=== PATIENT | female | born 1975 | race Caucasian/White ===

== ENCOUNTER → 2019-11-04 | Outpatient (CLI) | payer OTHER ==
[~2019-11-04] MED LIST: HYDR-2765 PO; LEVO25TA4 PO; LISI1TAB19 PO; NAPR500T8 PO
[2019-11-04 15:19] VITALS: BP 114/64
== END ==
LOC: SURG 14:00
PROVIDERS: ATTEND Anesthesiology Pain Medicine
DX: M25.551 Pain in right hip (principal); M54.5 Low back pain; M54.16 Radiculopathy, lumbar region; Z88.5 Allergy status to narcotic agent; Z88.8 Allergy status to other drugs, medicaments and biological substances
CPT/HCPCS: 99204

== ENCOUNTER 2019-12-14 18:40 | Emergency (ER) | payer OTHER ==
[~2019-12-14] VITALS: Ht 175.3 cm; Wt 64.5 kg
[2019-12-14 18:50] VITALS: BP 104/63
--- NOTE | 2019-12-14 18:56 | PHYS DOC ---
Past History Past Medical History: IBS, Kidney Stones, UTI Adult General Chief Complaint Chief Complaint: FLANK PAIN... " Claudia been having severe fllank pain on Lt.. it radiates down to my pelvis.. I went to [facility] on Friday... they took a urine and look up my vaginal area.. but said everything was all right... I have a follow up at [facility] this next week.. but I can'tt stand the pain.. HPI HPI Patient is a 44 year old female who presents with above hx and complaints generalized abdomen pain with some localization and left flank that radiates to her groin. She states at times it feels like she's having bladder spasms. Patient has history of 2 previous kidney stones. Patient states this is not a kidney stone like pain. Patient has had 4 sisters who have history kidney sto luca. Patient denies any travel or specific ill contacts. No history of trauma. Has a history of colitis and IBS. Patient denies any intake of bad food. No recent travel. No specific ill contacts. Pt. follows with Dr. Tlyer at [facility]. Patient poorly has been treated for UTI. Has been on Pyridium. Note patient's workup for abdomen pain was started before lab draws and x-rays the patient decided to leave. Patient states she only came here to get pain meds. Review of Systems Review of Systems Constitutional: Denies fever or chills [] Eyes: Denies change in visual acuity, redness, or eye pain [] HENT: Denies nasal congestion or sore throat [] Respiratory: Denies cough or shortness of breath [] Cardiovascular: No additional information not addressed in HPI [] GI: Complaints of generalized abdominal pain, nausea. Some left flank tenderness. Denies, vomiting, bloody stools or diarrhea [] : Denies dysuria or hematuria [] Musculoskeletal: Denies back pain or joint pain [] Integument: Denies rash or skin lesions [] Neurologic: Denies headache, focal weakness or sensory changes [] Endocrine: Denies polyuria or polydipsia [] All other systems were reviewed and found to be within normal limits, except as documented in this note. Family History Family History Renal stones with 2 sisters Current Medications Current Medications He nursing for home meds Allergies Allergies Allergies Coded Allergies Type Severity Reaction Last Updated Verified morphine Allergy Unknown 11/04/19 Yes Physical Exam Physical Exam Constitutional: Moderate acute distress, non-toxic appearance. [] HENT: Normocephalic, atraumatic, bilateral external ears normal, oropharynx moist, no oral exudates, nose normal. [] Eyes: PERRLA, EOMI, conjunctiva normal, no discharge. [] Neck: Normal range of motion, no tenderness, supple, no stridor. [] Cardiovascular:Heart rate regular rhythm, no murmur [] Lungs & Thorax: Bilateral breath sounds clear to auscultation [] Abdomen: Bowel sounds normal, soft, generalized tenderness, no masses, no pulsatile masses. Some rebound to the left upper and mid abdomen. Skin: Warm, dry, no erythema, no rash. [] Back: No tenderness, very mild left CVA tenderness. [] Extremities: No tenderness, no cyanosis, no clubbing, ROM intact, no edema. [] Neurologic: Alert and oriented X 3, normal motor function, normal sensory function, no focal deficits noted. [] Psychologic: Affect anxious ,judgement normal, mood normal. [] EKG EKG [] Radiology/Procedures Radiology/Procedures Left before completing x-rays[] Course & Med Decision Making Course & Med Decision Making Pertinent Labs and Imaging studies reviewed. (See chart for details) Patient left before completing x-rays labs for further evaluation. Patient encourage return anytime if she elected to complete her workup. Patient declined dose of Flomax for bladder spasms. Patient declined any antibiotics. Advised She would follow at [facility]. Encouraged patient stay on clear fluids if having abdomen pain. Push fluids. Return if any time. Impression- 1.. Abdomen pain 2. Suspect renal colic vs bladder spasms [] Dragon Disclaimer Dragon Disclaimer This electronic medical record was generated, in whole or in part, using a voice recognition dictation system. Departure Departure: Disposition: 01 HOME/RESIDENCE PRIOR TO ADM Condition: STABLE Referrals: SUKHJINDER TYLER DO (PCP) Bindu Disclaimer This chart was dictated in whole or in part using Voice Recognition software in a busy, high-work load, and often noisy Emergency Department environment. It m ay contain unintended and wholly unrecognized errors or omissions. Dragon Disclaimer This chart was dictated in whole or in part using Voice Recognition software in a busy, high-work load, and often noisy Emergency Department environment. It may contain unintended and wholly unrecognized errors or omissions. DAISHA HOUSE MD Dec 14, 2019 18:56
[2019-12-14 19:52] LABS: BARBITURATES NEG (NEG); BENZODIAZEPINES NEG (NEG); CANNABINOIDS NEG (NEG); COCAINE NEG (NEG); METHADONE NEG (NEG); OPIATES POS (NEG); PHENCYCLIDINE NEG (NEG)
[2019-12-14 19:53] LABS: AMPHETAMINE/METHAMPHETAMINE NEG (NEG)
[2019-12-14] MEDS ORDERED: IV RINGERS SOLUTION,LACTATED 1,000 ML IV SCH (20:05)
[2019-12-14] MEDS ORDERED: TAMSULOSIN 0.4 MG CAP.ER.24H. PO ONE (20:15)
[2019-12-14] MEDS ORDERED: KETOROLAC 30 MG/ML VIAL. IVP ONE (20:15)
[2019-12-14] MEDS ORDERED: FAMOTIDINE 20 MG/2 ML VIAL IVP ONE (20:15)
[2019-12-14] MEDS ORDERED: ONDANSETRON PF 4 MG/2 ML VIAL. IVP ONE (20:15)
[2019-12-14 20:21] LABS: BACTERIA,URINE FEW /HPF (0-FEW); BILIRUBIN,URINE NEG (NEG); CLARITY,URINE CLEAR; COLOR,URINE AMBER; GLUCOSE,URINE NEG (NEG); NITRITE,URINE POS (NEG); RBC,URINE OCC /HPF (0-2); SQUAMOUS EPITHELIAL CELL,UR FEW /LPF; UROBILINOGEN,URINE 0.2 mg/dL (0.2 mg/dL); WBC,URINE OCC /HPF (0-4)
== END 2019-12-14 20:27 | disposition home or self-care (01) ==
LOC: ER 18:40
DX: R10.84 Generalized abdominal pain (principal); Z88.5 Allergy status to narcotic agent
CPT/HCPCS: 36415; 80307; 81001; 87086; 99283

== ENCOUNTER → 2019-12-15 | Outpatient (CLI) | payer OTHER ==
[2019-12-14 18:50] VITALS: BP 104/63
--- NOTE | 2019-12-15 13:38 | RAD ---
EXAM: CT Abdomen and Pelvis without IV contrast CLINICAL HISTORY: Left flank pain. COMPARISON: none TECHNIQUE: Helical CT of the abdomen and pelvis was performed without the administration of IV contrast. Axial, coronal and sagittal reformatted images were generated. ---PQRS compliance statement - One or more of the following individualized dose reduction techniques were utilized for this study: 1. Automated exposure control 2. Adjustment of the mA and/or kV according to patient size 3. Use of iterative reconstruction technique--- FINDINGS: Lack of intravenous contrast limits evaluation of solid organs, vasculature, and lymph nodes. Lower chest: Dependent opacities in the lingula likely scarring/atelectasis. Abdomen and pelvis: Liver and biliary system: Liver is borderline enlarged measuring 18 cm in length. No focal liver lesion is seen. Mild high density material dependently within the gallbladder likely sludge. No biliary ductal dilatation. Spleen: Unremarkable Pancreas: Pancreas is unremarkable. Adrenal glands: Unremarkable Kidneys: Punctate nonobstructing right upper pole renal calculus. No hydronephrosis or hydroureter. A 3 mm calculus is seen within the distal right ureter with associated infiltration, this is approximately 8 mm from the right ureterovesicular junction. Lymph nodes/retroperitoneum: No abdominal or pelvic lymphadenopathy. Vessels: Aortic calcifications are noted. Bowel/Peritoneal cavity: Moderate colonic stool content is seen. No small or large bowel dilatation. No evidence for bowel obstruction. No abdominal or pelvic ascites. Uterus and adnexa are unremarkable. Abdominal wall: Small fat-containing periumbilical hernia is seen. Small fat-containing periumbilical hernia is seen. Bladder: Bladder is decompressed. Bones: Degenerative changes of the spine are seen. No aggressive osseous lesion. IMPRESSION: 1. 3 mm calculus within the distal right ureter approximately 8 mm from the right ureterovesicular junction is seen. No significant associated right hydronephrosis or hydroureter. 2. Punctate nonobstructing right upper pole renal calculus. No additional left or right renal calculi are seen. 3. Liver is borderline enlarged measuring 18 cm in length. 4. Gallbladder sludge. Electronically signed by: Pratik Kang MD (12/15/2019 1:36 PM) [facility]
== END | disposition home or self-care (01) ==
LOC: CT 13:03
PROVIDERS: ATTEND Family Medicine
DX: K42.9 Umbilical hernia without obstruction or gangrene (principal); J98.4 Other disorders of lung; R16.0 Hepatomegaly, not elsewhere classified; N20.0 Calculus of kidney; I70.0 Atherosclerosis of aorta; M47.814 Spondylosis without myelopathy or radiculopathy, thoracic region; N20.1 Calculus of ureter
CPT/HCPCS: 74176

== ENCOUNTER 2021-02-24 03:13 | Emergency (ER) | payer OTHER ==
[~2021-02-24] VITALS: Ht 160 cm; Wt 65.7 kg
[~2021-02-24 03:13] MED LIST changes: -LISI1TAB19 PO; +LISI1TAB37 PO
--- NOTE | 2021-02-24 03:22 | PHYS DOC ---
Past History Past Medical History: UTI Past Surgical History: No Surgical History Alcohol Use: None Adult General HPI HPI Patient is a 45-year-old female who presents with bilateral lower back pain that wraps around to her supra pubic region bilaterally. She reports the pain got really bad about 5 days ago. She does have a history of chronic back pain and has had multiple lower back ablations in the past. She reports she normally takes Vicodin 7.5 mg over 325 mg and Flexeril to manage her pain. When her symp toms began she thought this was a muscular back pain therefore she took her pain medications and her muscle relaxer however did not find relief. She reports it feels like dagger/sharp sensation that wraps around from her mid lumbar region to her suprapubic region. She does state that she has not had any changes in urination, any blood in her urine, any changes in her bowel habitus, bloody bowel movements, nausea, or vomiting. Reports no sick contacts or fevers at home. Review of Systems Review of Systems Fourteen body systems of review of systems have been reviewed. See HPI for pertinent positives and negative responses, other stiles all other systems are negative, non-pertinent or non-contributory Allergies Allergies Allergies Coded Allergies Type Severity Reaction Last Updated Verified morphine Allergy Unknown 11/04/19 Yes Physical Exam Physical Exam Constitutional: Well developed, well nourished, no acute distress, non-toxic appearance. HENT: Normocephalic, atraumatic, bilateral external ears normal, oropharynx moist, no oral exudates, nose normal. Eyes: PERRLA, EOMI, conjunctiva normal, no discharge. Neck: Normal range of motion, no tenderness, supple, no stridor. Cardiovascular: Heart rate regular, sinus rhythm, no murmurs rubs or gallops Lungs & Thorax: Bilateral breath sounds clear to auscultation Abdomen: Bowel sounds normal, soft, no masses, no pulsatile masses. Nonsurgical abdomen, no peritoneal signs. Tenderness to palpation in the lower right and lower left quadrants. Negative Lawton's negative Rovsing's negative CVA tenderness bilaterally negative McBurney's point tenderness negative periumbilical tenderness negative obturator sign bilaterally, negative heel strike bilaterally Skin: Warm, dry, no erythema, no rash. Back: No tenderness, no CVA tenderness. Negative straight leg test bilaterally Extremities: No tenderness, no cyanosis, no clubbing, ROM intact, no edema. Neurologic: Alert and oriented X 3, grossly normal motor & sensory function, no focal deficits noted. Psychologic: Affect normal, judgement normal, mood normal. Current Patient Data Vital Signs Vital Signs Date Time Temp Pulse Resp B/P (MAP) Pulse Ox O2 Delivery O2 Flow Rate FiO2 02/24/21 03:58 97.9 86 18 137/84 (101) 98 Room Air Vital Signs Date Time Temp Pulse Resp B/P (MAP) Pulse Ox O2 Delivery O2 Flow Rate FiO2 02/24/21 03:58 97.9 86 18 137/84 (101) 98 Room Air Lab Results Current Medications Medications (Trade) Dose Ordered Sig/Vinya Route PRN Reason Start Time Stop Time Status Last Admin Dose Admin Sodium Chloride 1,000 ml @ 1,000 mls/hr 1X ONCE IV 02/24/21 04:15 02/24/21 05:14 DC 02/24/21 04:31 Ketorolac Tromethamine (Toradol 15mg Vial) 15 mg 1X ONCE IVP 02/24/21 04:15 02/24/21 04:20 DC 02/24/21 04:31 Iohexol (Omnipaque 300 Mg/ml) 75 ml 1X ONCE IV 02/24/21 04:30 02/24/21 04:31 DC 02/24/21 04:50 Info (Do NOT chart on this entry -- for MONITORING) 1 each PRN DAILY PRN MC SEE COMMENTS 02/24/21 04:30 02/24/21 05:36 DC EKG EKG [] Radiology/Procedures Radiology/Procedures CT abdomen pelvis with contrast dated 02/24/2021. Comparison made to 12/15/2019. CLINICAL INDICATION: Abdominal pain. Evaluate for stone. TECHNIQUE: Contiguous axial imaging the abdomen pelvis performed after the administration of 75 cc Omnipaque 300. One or more of the following individualized dose reduction techniques were utilized for this examination: 1. Automated exposure control 2. Adjustment of the mA and/or kV according to patient size 3. Use of iterative reconstruction technique. FINDINGS: Limited images of lung bases are clear. Heart size within normal limits. No pleural or pericardial effusion. Liver, spleen, pancreas, adrenal glands, gallbladder and kidneys are unremarkable. No hydronephrosis. 2 mm calcific stone at the upper pole right kidney, unchanged. Unopacified GI tract normal in caliber and contour. No focal bowel wall thickening. No inflammatory stranding in the mesentery. Appendix normal in caliber. No ascites or lymphadenopathy. Abdominal aorta normal in caliber. Atherosclerotic changes of the abdominal aorta and right iliac vessels. Images of pelvis show nondistended urinary bladder. Uterus and adnexa are unremarkable. No free fluid or pelvic lymphadenopathy. Bone windows show no acute finding. Multilevel spondylosis. IMPRESSION: 1. No acute abnormality of abdomen or pelvis. Normal appendix. 2. Right-sided nephrolithiasis, nonobstructive. Electronically signed by: Scott Molina MD (02/24/2021 5:12 AM) [facility] Heart Score C/O Chest Pain: No Risk Factors: Risk Factors: DM, Current or recent (<one month) smoker, HTN, HLP, family history of CAD, obesity. Risk Scores: Risk Factors: DM, Current or recent (<one month) smoker, HTN, HLP, family history of CAD, obesity. Course & Med Decision Making Course & Med Decision Making VSS, HPI and PE non-concerning for emergent/surgical abdominal pathology ER workup grossly non-concerning, right-sided kidney stone present but this does not fully match HPI. I discussed entirety of ER workup and findings and proposed diagnoses. Patient condition vastly improved with ER intervention provided. She is requesting discharge home with Toradol given immense relief provided I disclosed this might be an acute presentation of more concerning pathology and advised close PCP follow-up she has good access to care and can ensure this happens I reviewed side effects of toradol and complied with her request for this medication Strict return precautions discussed prior to departure Bindu Disclaimer Bindu Disclaimer This electronic medical record was generated, in whole or in part, using a voice recognition dictation system. Departure Departure: Impression: Primary Impression: Unspecified abdominal pain Disposition: HOME / SELF CARE / HOMELESS Condition: IMPROVED Referrals: PCP,UNKNOWN (PCP) Patient Instructions: Abdominal Pain (Nonspecific) Additional Instructions: You have been evaluated in the Emergency Department today for abdominal pain. Your evaluation was not suggestive of any emergent condition requiring medical intervention at this time. However, some abdominal problems make take more time to appear. Therefore, it is important for you to watch for any new symptoms or worsening of your current condition. Your pain improved with IV Toradol. You were requesting pain prescription for this, I am okay with this but and sure to take this on a full stomach with food as side effects that were discussed include GI upset and potential bleed You need to contact your primary care physician tomorrow and review ER visit. You need to be seen within upcoming 48 to 72 hours for repeat evaluation as this might be an acute presentation of more concerning pathology. Return to the Emergency Department if you experience worsening pain, persistent fevers greater than 100.4, recurrent vomiting, blood in vomit, blood in stool, dark tarry stool, chest pain, difficulty breathing, or any other concerning symptoms. Scripts Ketorolac Tromethamine (KETOROLAC TROMETHAMINE) 10 Mg Tablet 1 TAB PO TID for SEV PAIN, #15 TAB Prov: LYNNETTE BOBBY DO 02/24/21 LYNNETTE BOBBY DO February 24, 2021 03:22
[2021-02-24 03:58] VITALS: BP 137/84
[2021-02-24] MEDS ORDERED: IV NORMAL SALINE 1,000ML 1,000 ML IV ONE (04:15)
[2021-02-24] MEDS ORDERED: KETOROLAC 15 MG/ML VIAL. IVP ONE (04:15)
[2021-02-24] MEDS ORDERED: IOHEXOL 300 MG/ML 75 ML VIAL. IV ONE (04:30)
[2021-02-24] MEDS ORDERED: CONTRAST GIVEN. MC PRN (04:30)
[2021-02-24 04:37] LABS: BILIRUBIN,URINE NEG (NEG); CLARITY,URINE CLEAR; COLOR,URINE YELLOW; GLUCOSE,URINE NEG (NEG)
[2021-02-24 04:38] LABS: BACTERIA,URINE FEW /HPF (0-FEW); NITRITE,URINE NEG (NEG); RBC,URINE 0 /HPF (0-2); SQUAMOUS EPITHELIAL CELL,UR FEW /LPF; UROBILINOGEN,URINE 0.2 mg/dL (0.2 mg/dL); WBC,URINE 0 /HPF (0-4)
[2021-02-24 04:56] LABS: BASO # 0.1 x10^3/uL (0.0-0.2); BASO % 1 % (0-3); EOS # 0.3 x10^3/uL (0.0-0.7); EOS % 3 % (0-3); HEMATOCRIT 38.7 % (36.0-47.0); HEMOGLOBIN 13.1 g/dL (12.0-15.5); LYMPH # 2.9 x10^3/uL (1.0-4.8); LYMPH % 34 % (24-48); MEAN CORPUSCULAR HEMOGLOBIN 34 pg (25-35); MEAN CORPUSCULAR HGB CONC 34 g/dL (31-37); MEAN CORPUSCULAR VOLUME 100 fL (79-100); MONO # 0.5 x10^3/uL (0.0-1.1); MONO % 6 % (0-9); NEUT # 4.7 x10^3uL (1.8-7.7); NEUT % 56 % (31-73); PLATELET COUNT 264 x10^3/uL (140-400); RED BLOOD COUNT 3.86 x10^6/uL (3.50-5.40); RED CELL DISTRIBUTION WIDTH 13.8 % (11.5-14.5); WHITE BLOOD COUNT 8.4 x10^3/uL (4.0-11.0)
[2021-02-24 04:57] LABS: CALCIUM 8.7 mg/dL (8.5-10.1); CREATININE 0.9 mg/dL (0.6-1.0); GFR 67.1; POTASSIUM 3.8 mmol/L (3.5-5.1)
[2021-02-24 05:03] LABS: ALBUMIN 3.6 g/dL (3.4-5.0); ALBUMIN/GLOBULIN RATIO 1.2 (1.0-1.7); TOTAL BILIRUBIN 0.3 mg/dL (0.2-1.0); TOTAL PROTEIN 6.7 g/dL (6.4-8.2)
--- NOTE | 2021-02-24 05:14 | RAD ---
CT abdomen pelvis with contrast dated 02/24/2021. Comparison made to 12/15/2019. CLINICAL INDICATION: Abdominal pain. Evaluate for stone. TECHNIQUE: Contiguous axial imaging the abdomen pelvis performed after the administration of 75 cc Omnipaque 300 . One or more of the following individualized dose reduction techniques were utilized for this examinat ion: 1. Automated exposure control 2. Adjustment of the mA and/or kV according to patient size 3. Use of iterative reconstruction technique. FINDINGS: Limited images of lung bases are clear. Heart size within normal limits. No pleural or pericardial ef fusion. Liver, spleen, pancreas, adrenal glands, gallbladder and kidneys are unremarkable. No hydronephrosis. 2 mm calcific stone at the upper pole right kidney, unchanged. Unopacified GI tract normal in caliber and contour. No focal bowel wall thickening. No inflammatory s tranding in the mesentery. Appendix normal in caliber. No ascites or lymphadenopathy. Abdominal aorta normal in caliber. Atherosclerotic changes of the abdominal aorta and right iliac vessels. Images of pelvis show nondistended urinary bladder. Uterus and adnexa are unremarkable. No free fluid or pelvic lymphadenopathy. Bone windows show no acute finding. Multilevel spondylosis. IMPRESSION: 1. No acute abnormality of abdomen or pelvis. Normal appendix. 2. Right-sided nephrolithiasis, nonobstructive. Electronically signed by: Scott Molina MD (02/24/2021 5:12 AM) [facility]
[2021-02-24] MEDS ORDERED: KETO10TA PO (05:26)
== END 2021-02-24 05:30 | disposition home or self-care (01) ==
LOC: ER 03:13
DX: R10.31 Right lower quadrant pain (principal); R10.32 Left lower quadrant pain; M54.5 Low back pain; G89.29 Other chronic pain; Z88.5 Allergy status to narcotic agent
CPT/HCPCS: 36415; 74177; 80053; 81001; 85025; 96361; 96374; 99285; J1885; J7030; Q9967

== ENCOUNTER 2021-07-01 08:50 | Emergency (ER) | payer OTHER ==
[~2021-07-01] VITALS: Ht 160 cm; Wt 65.7 kg
[~2021-07-01 08:50] MED LIST changes: +KETO10TA PO
[2021-07-01 09:02] VITALS: BP 117/67
[2021-07-01] MEDS ORDERED: KETOROLAC 60 MG/2 ML VIAL. IM ONE (09:30)
[2021-07-01] MEDS ORDERED: DEXAMETHASONE SOD PHOS 10 MG/ML VIAL. PO ONE (09:30)
[2021-07-01] MEDS ORDERED: BENZONATATE 100 MG CAPSULE. PO ONE (09:30)
--- NOTE | 2021-07-01 10:16 | RAD ---
Exam Date: 07/01/2021 9:29 AM XR CHEST 1V Indication: Reason: COVID+ / Spl. Instructions: / History: . FINDINGS/ IMPRESSION: The cardiac silhouette and pulmonary vasculature are within normal limits. There is no focal consolidation, pleural effusion or pneumothorax. The visualized osseous structures are intact. Electronically signed by: Paul Terrazas MD (07/01/2021 10:14 AM) [facility]
[2021-07-01] MEDS ORDERED: DEXA4TAB63 PO (10:20)
[2021-07-01] MEDS ORDERED: BENZ100C PO (10:20)
[2021-07-01] MEDS ORDERED: CYCL-331 PO (10:20)
--- NOTE | 2021-07-01 10:20 | PHYS DOC ---
Past History Past Medical History: Hypertension, Hypothyroid, IBS, Kidney Stones, UTI, Other Additional Past Medical Histor: CHRONIC BACK PAIN Past Surgical History: , Other Additional Past Surgical Histo: LAPROSCOPIC SX Alcohol Use: None General Adult EDM: Chief Complaint: BACK INJURY HPI: HPI: 46-year-old female presents with back pain. The patient just did a home test for COVID-19 and found out that she was positive. She has had symptoms for about 5 days. She was coughing so much yesterday that she feels like she strained her lower back. She tells me that she has chronic low back pain. Denies falls or trauma. The patient is requesting Toradol shot. She already has hydrocodone at home. The patient has been taking 10 mg of prednisone the last few days because she has a history of asthma and had some extra pills. She is taking no other treatment for COVID-19. Review of Systems: Review of Systems: Constitutional: Denies fever or chills Eyes: Denies change in visual acuity HENT: Denies nasal congestion or sore throat Respiratory: Cough with shortness of breath Cardiovascular: Denies chest pain or edema GI: Denies abdominal pain, nausea, vomiting, bloody stools or diarrhea : Denies dysuria Musculoskeletal: Low back pain Integument: Denies rash Neurologic: Denies headache, focal weakness or sensory changes Endocrine: Denies polyuria or polydipsia Lymphatic: Denies swollen glands Psychiatric: Denies depression or anxiety Current Medications: Current Meds: Current Medications Medications (Trade) Dose Ordered Sig/Vinay Start Time Stop Time Status Last Admin Dose Admin Benzonatate (Tessalon Perle) 100 mg 1X ONCE 07/01/21 09:30 07/01/21 09:31 DC 07/01/21 09:34 100 MG Dexamethasone Sodium Phosphate (Decadron) 10 mg 1X ONCE 07/01/21 09:30 07/01/21 09:31 DC 07/01/21 09:34 10 MG Ketorolac Tromethamine (Toradol Im) 60 mg 1X ONCE 07/01/21 09:30 07/01/21 09:31 DC 07/01/21 09:34 60 MG Allergies: Allergies: Allergies Coded Allergies Type Severity Reaction Last Updated Verified morphine Allergy Unknown 11/04/19 Yes Physical Exam: PE: Constitutional: Well developed, well nourished, no acute distress, non-toxic appearance. [] HENT: Normocephalic, atraumatic, bilateral external ears normal, oropharynx moist, no oral exudates, nose normal. [] Eyes: PERRLA, EOMI, conjunctiva normal, no discharge. [] Neck: Normal range of motion, no tenderness, supple, no stridor. [] Cardiovascular: Heart rate regular rhythm, no murmur [] Lungs & Thorax: Bilateral breath sounds clear to auscultation [] Abdomen: Bowel sounds normal, soft, no tenderness, no masses, no pulsatile masses. [] Skin: Warm, dry, no erythema, no rash. [] Back: Low back paraspinal muscle tenderness. [] Extremities: No tenderness, no cyanosis, no clubbing, ROM intact, no edema. [] Neurologic: Alert and oriented X 3, normal motor function, normal sensory function, no focal deficits noted. [] Psychologic: Affect normal, judgement normal, mood normal. [] Current Patient Data: Vital Signs: Vital Signs Date Time Temp Pulse Resp B/P (MAP) Pulse Ox O2 Delivery O2 Flow Rate FiO2 07/01/21 09:02 98.7 107 16 117/67 96 EKG: EKG: [] Radiology/Procedures: Radiology/Procedures: [] Heart Score: C/O Chest Pain: N/A Risk Factors: Risk Factors: DM, Current or recent (<one month) smoker, HTN, HLP, family history of CAD, obesity. Risk Scores: Score 0 - 3: 2.5% MACE over next 6 weeks - Discharge Home Score 4 - 6: 20.3% MACE over next 6 weeks - Admit for Clinical Observation Score 7 - 10: 72.7% MACE over next 6 weeks - Early Invasive Strategies Course & Med Decision Making: Course & Med Decision Making Pertinent Labs and Imaging studies reviewed. (See chart for details) We have given the patient a Toradol IM injection in the ED. Also gave her a short prescription for Decadron for her pain as well as COVID-19. Finally, I will discharge her with Flexeril for her muscle spasms. She is stable for discharge at this time. [] Dragon Disclaimer: Dragon Disclaimer: This electronic medical record was generated, in whole or in part, using a voice recognition dictation system. Departure Departure: Impression: Primary Impression: Low back strain Qualified Codes: S39.012A - Strain of muscle, fascia and tendon of lower back, initial encounter Additional Impression: COVID-19 Disposition: 01 HOME / SELF CARE / HOMELESS Condition: STABLE Referrals: PCP,UNKNOWN (PCP) Patient Instructions: Low Back Strain with [facility] Additional Instructions: You have been tested for or diagnosed with COVID-19. It is an infection caused by a new type of coronavirus. COVID-19 will cause cold-like or mild flu symptoms in most. It can cause more severe symptoms like problems breathing in some. There is no treatment for COVID-19. The body will clear the infection over time. Self-care will help to ease discomfort. Steps to Take: Self-Care Rest as needed. Healthy habits may help you feel better. Steps include: Choose healthy foods including fruits and vegetables. Drink water throughout the day. Get plenty of sleep each night. If you smoke, try to quit. It may ease breathing. Avoid alcohol. Keep Others Healthy The virus can spread to others. Droplets are released every time you sneeze or cough. The droplets can get into the mouth, nose, or eyes of people near you and lead to infection. To lower the chances of spreading COVID-19 to others: Stay at home until your doctor has said it is safe to leave. If you tested positive this will mean staying isolated until both of the following are true: At least 7 days have passed since the start of illness. You are free of fever for at least 72 hours without the use of medicine. During this time: - Avoid public areas, events, or transportation. Do not return to work or school until your doctor has said it is safe to do so. - Call ahead if you need to go to a medical center. Let them know you may have COVID-19. It will help them guide you where to go. They may also ask you to wear a facemask when you come to the office. - If you call for emergency medical services, let them know you may have COVID- 19. While at home: - Try to avoid close contact with others. Stay about 6 feet away. - If possible, spend most of your time in a separate room from others. - Use a face mask if you will be in close contact with others such as sharing a room or vehicle. - Have someone wipe down common surfaces in the home. Use household internet salesperson every day on areas like doorknobs, counters, or sinks. - Cough or sneeze into a tissue. Throw the tissue away right after use. If a tissue is not available, cough or sneeze into your elbow. - Wash your hands often. Wash them after sneezing or coughing. Use soap and water and wash for at least 20 seconds. Alcohol based hand machine heddle cleaner can be used if soap and water is not available. - Do not prepare food for others. Avoid sharing personal items like forks, spoons, or toothbrushes. - Avoid close contact with pets while you are sick. There is no evidence of the virus passing to pets. This is a safety step until more is known about this virus. Isolation can be frustrating. Social interaction can help. Keep in touch with friends and family through phone and tech options. You can still interact with others in your home, just keep a safe distance of about 6 feet. Follow-up: Your doctors office will check in with you to see if there are any changes in your health. You may be asked to keep track of symptoms to share with them. They will also let you know when you are clear to be in public again. Problems to Look Out For: Contact your doctor if your recovery is not going as you expect. Get emergency care if you have problems such as: - Trouble breathing - Nonstop chest pain or pressure - Changes in awareness, confusion, or problems waking - Lips or face have bluish color - Worsening of symptoms If you think you have an emergency, call for emergency medical services right away. As taken from [facility] [place] Health Scripts Cyclobenzaprine Hcl (CYCLOBENZAPRINE HCL) 10 Mg Tablet 1 TAB PO TID PRN for MUSCLE SPASMS, #30 TAB Prov: SHELLY SOSA DO 07/01/21 Dexamethasone (Decadron) 4 Mg Tablet 1 TAB PO BID for back strain for 5 Days, #10 TAB 0 Refills Prov: SHELLY SOSA DO 07/01/21 Benzonatate (TESSALON PERLE) 100 Mg Capsule 1 CAP PO TID PRN for COUGH, #30 CAP Prov: SHELLY SOSA DO 07/01/21 SHELLY SOSA DO Jul 01, 2021 10:20
[2021-07-01] MEDS ORDERED: KETO10TA PO (10:25)
== END 2021-07-01 10:30 | disposition home or self-care (01) ==
LOC: ER 08:50
DX: S39.012A Strain of muscle, fascia and tendon of lower back, initial encounter (principal); U07.1 COVID-19; G89.29 Other chronic pain; I10 Essential (primary) hypertension; E03.9 Hypothyroidism, unspecified; K58.9 Irritable bowel syndrome, unspecified; Z87.440 Personal history of urinary (tract) infections; Z87.442 Personal history of urinary calculi; Z88.5 Allergy status to narcotic agent; X50.9XXA Other and unspecified overexertion or strenuous movements or postures, initial encounter; Y93.89 Activity, other specified; Y92.89 Other specified places as the place of occurrence of the external cause; Y99.8 Other external cause status
CPT/HCPCS: 71045; 96372; 99283; J1100; J1885

== ENCOUNTER 2021-07-08 07:00 | Emergency (ER) | payer OTHER ==
[~2021-07-08] VITALS: Ht 160 cm; Wt 61.0 kg
[~2021-07-08 07:00] MED LIST changes: +BENZ100C PO; +CYCL-331 PO; +DEXA4TAB63 PO
--- NOTE | 2021-07-08 07:52 | RAD ---
PROCEDURE: XR CHEST 1V.07/08/2021 7:49 AM REASON FOR STUDY: Reason: cough / Spl. Instructions: / History: . COMPARISON: Study of 07/01/2021. FINDINGS: There appears to be slightly greater opacity along the left cardiac margin. This could tono lilian minimal lingular atelectasis or infiltrate. The lungs otherwise appear clear and no pleural flui d is seen. Heart size is normal. IMPRESSION: Slight increase lingular opacity. Electronically signed by: Roscoe Olivas Jr., MD (07/08/2021 7:50 AM) [id number]
[2021-07-08] MEDS ORDERED: PSEUDOEPHEDRINE 30 MG TABLET. PO ONE (08:15)
[2021-07-08] MEDS ORDERED: OXYM15MI4 NS (08:20)
[2021-07-08] MEDS ORDERED: AMOX1TAB61 PO (08:20)
--- NOTE | 2021-07-08 08:20 | PHYS DOC ---
Past History Past Medical History: Hypertension, Hypothyroid, IBS, Kidney Stones, UTI, Other Additional Past Medical Histor: CHRONIC BACK PAIN, PVCs Past Surgical History: , Other Additional Past Surgical Histo: LAPROSCOPIC SX Alcohol Use: None General Adult EDM: Chief Complaint: FACE PAIN HPI: HPI: 46-year-old female past medical history of hypertension, hypothyroidism with Covid infection 2 weeks ago, presents to the ED with complaints of bilateral facial pain and forehead pain with associated headache and green-yellow nasal mucus. Pt states "I feel miserable." H/o prior sinus infections but "never this bad." Denies any associated nuchal rigidity, blurry vision or facial droop. Review of Systems: Review of Systems: Constitutional: Denies fever or chills Eyes: Denies change in visual acuity HENT: Denies rhinorrhea or sore throat Respiratory: Denies cough or shortness of breath Cardiovascular: Denies chest pain or edema GI: Denies nausea or vomiting, : Denies dysuria or vaginal bleeding (no menses x4 years-is menopausal) Musculoskeletal: Denies back pain or joint pain Integument: Denies rash or diaphoresis Neurologic: Denies neck stiffness, focal weakness or sensory changes Endocrine: Denies polyuria or polydipsia Lymphatic: Denies swollen glands Psychiatric: Denies depression or anxiety Current Medications: Current Meds: Current Medications Medications (Trade) Dose Ordered Sig/Vinay Start Time Stop Time Status Last Admin Dose Admin Guaifenesin (Mucinex Er) 600 mg 1X ONCE 07/08/21 07:15 07/08/21 07:16 DC 07/08/21 08:02 600 MG Allergies: Allergies: Allergies Coded Allergies Type Severity Reaction Last Updated Verified morphine Allergy Severe Swelling 07/08/21 Yes Physical Exam: PE: Constitutional: appears tired but non-toxic appearance, afebrile HENT: Normocephalic, atraumatic, + bilateral maxillary and frontal sinus pressure Eyes: EOMI, conjunctiva normal, no discharge. Neck: Normal range of motion, supple, Cardiovascular: S1/2 present, regular rhythm Lungs & Thorax: Speaking in full sentences, bilateral equal chest rise, no tachypnea or increased work of breathing, active dry cough, nasal voice Skin: Warm, dry, no erythema, no rash. [] Extremities: No tenderness, no cyanosis, no lower extremity edema Neurologic: Alert and oriented X 3, normal motor function, normal sensory function, no focal deficits noted. [] Psychologic: Affect normal, judgement normal, mood normal. [] Current Patient Data: Vital Signs: Vital Signs Date Time Temp Pulse Resp B/P (MAP) Pulse Ox O2 Delivery O2 Flow Rate FiO2 07/08/21 07:18 99.1 88 19 100/57 (71) 95 EKG: EKG: [] Radiology/Procedures: Radiology/Procedures: IMAGING REPORT Signed PATIENT: RIGO BARNEY AACCOUNT: [id number] : 1975 LOCATION: ER AGE: 46 SEX: F EXAM STATUS: REG ER ORD. PHYSICIAN: NAIMA JEFFERSON DO REASON: cough PROCEDURE: CHEST AP ONLY PROCEDURE: XR CHEST 1V.07/08/2021 7:49 AM REASON FOR STUDY: Reason: cough / Spl. Instructions: / History: . COMPARISON: Study of 07/01/2021. FINDINGS: There appears to be slightly greater opacity along the left cardiac margin. This could indicate minimal lingular atelectasis or infiltrate. The lungs otherwise appear clear and no pleural fluid is seen. Heart size is normal. IMPRESSION: Slight increase lingular opacity. Electronically signed by: Jasbir Olivas Jr., MD (07/08/2021 7:50 AM) [id number] DICTATED AND SIGNED BY: JASBIR OLIVAS Jr, MD DATE: 07/08/21 0749 CC: NON,STAFF; NAIMA JEFFERSON DO ~MTH0 0 Heart Score: C/O Chest Pain: No Risk Factors: Risk Factors: DM, Current or recent (<one month) smoker, HTN, HLP, family history of CAD, obesity. Risk Scores: Score 0 - 3: 2.5% MACE over next 6 weeks - Discharge Home Score 4 - 6: 20.3% MACE over next 6 weeks - Admit for Clinical Observation Score 7 - 10: 72.7% MACE over next 6 weeks - Early Invasive Strategies Course & Med Decision Making: Course & Med Decision Making Pertinent Labs and Imaging studies reviewed. (See chart for details) Concern for acute sinusitis, likely bacterial after COVID-19 infection 2 weeks ago. X-ray concerning for possible infection in the lingula. Will prescribe Augmentin for 10 days and Afrin spray. Patient encouraged to follow-up with her primary care physician in 1 to 2 days to have her blood pressure rechecked. Was cautioned regarding Sudafed [id number]-enuxets as it would cause rebound congestion and could make her blood pressure worse/increase her risk of stroke. Will discharge home with strict ED return precautions were given for severe headache, fever, nuchal rigidity or blurry vision. Encouraged urgent outpatient follow-up with PMD and ENT as needed for definitive management. Life- threatening processes were considered but are low suspicion at this time, given history, physical exam and ED workup. Pt was educated on all prescription medications and adverse effects. All patient's questions were answered and pt was stable at time of discharge. Life/limb-threatening differential includes but is not limited to, meningitis, encephalitis, intracranial hemorrhage, obstructive hydrocephaly, CVA, carbon monoxide poisoning, cerebral or cavernous venous thrombosis, hypertensive emergency, preeclampsia, giant cell arteritis, glaucoma, carotid or vertebral artery dissection, superior vena cava syndrome, infection, optic neuritis, or space-occupying lesions. I have spoken with the patient and/or caregivers. I explained the patient's condition, diagnoses and treatment plan based on the information available to me at this time. I have answered the patient and/or caregiver's questions and addressed any concerns. The patient and/or caregivers have a good understanding of patient's diagnosis, condition and treatment plan as can be expected at this point. Vital signs have been stable. Patient's condition is stable and appropriate for discharge from the emergency department. Patient will pursue further outpatient evaluation with primary care physician or other designated or consulting physician as outlined in the discharge instructions. The patient and/or caregivers are agreeable to this plan of care and follow-up instructions have been explained in detail. The patient and/or caregivers have received these instructions in written form and have expressed an understanding of the discharge instructions. The patient and/or caregivers are aware that any significant change of condition or worsening of symptoms should prompt immediate return to this or the closest emergency department or call to 911. Bindu Disclaimer: Bindu Disclaimer: This electronic medical record was generated, in whole or in part, using a voice recognition dictation system. Departure Departure: Impression: Primary Impression: Acute sinusitis Disposition: HOME / SELF CARE / HOMELESS Condition: STABLE Referrals: NON,STAFF (PCP) Follow up with your pcp in 1-2 days or [facility] Susana Mulligan [phone] OR [facility] Collazo [phone] Patient Instructions: Sinusitis Additional Instructions: FOLLOW UP WITH ENT: FOR DEFINITIVE MANAGEMENT Kareem Heath DO [address], [address] [place] [address] OR [facility] [address] [place] [address] EMERGENCY DEPARTMENT GENERAL DISCHARGE INSTRUCTIONS Thank you for coming to [facility] (ED) today and trusting us with you care. We trust that you had a positivie experience in our Emergency Department. If you wish to speak to the department management, you may call the director at [phone]. YOUR FOLLOW UP INSTRUCTIONS ARE FOLLOWS: 1. Do you have a private Doctor? If you do not have a private doctor, please ask for a resource list of physicians or clinics that may be able to assist you with follow up care. 2. The Emergency Physician has interpreted your x-rays. The X-Ray specialist will also review them. If there is a change in the findings, you will be notified in 48 hours when at all possible. 3. A lab test or culture has been done, your results will be reviewed and you will be notified if you need a change in treatment. ADDITIONAL INSTRUCTIONS AND INFORMATION: 1. Your care today has been supervised by a physician who is specially trained in emergency care. Many problems require more than one evaluation for a complete diagnosis and treatment. We recommend that you schedule your follow up appointment as recommended to ensure complete treatment of you illness or injury. If you are unable to obtain follow up care and continue to have a problem, or if your condition worsens, we recommend that you return to the ED. 2. We are not able to safely determine your condition over the phone nor are we able to give sound medical advice over the phone. For these safety reasons, if you call for medical advice we will ask you to come to the ED for further evaluation. 3. If you have any questions regarding these discharge instructions please call the ED at [phone]. SAFETY INFORMATION: In the interest of safety, wellness, and injury prevention; we encourage you to wear your sealbelt, if you smoke; quite smoking, and we encourage family to use a protective helmet for bicycling and other sporting events that present an increased risk for head injury. IF YOUR SYMPTOMS WORSEN OR NEW SYMPTOMS DEVELOP, OR YOU HAVE CONCERNS ABOUT YOUR CONDITION; OR IF YOUR CONDITION WORSENS WHILE YOU ARE WAITING FOR YOUR FOLLOW UP APPOINTMENT; EITHER CONTACT YOUR PRIMARY CARE DOCTOR, THE PHYSICIAN WHOSE NAME AND NUMBER YOU WERE GIVEN, OR RETURN TO THE ED IMMEDIATELY. Scripts Oxymetazoline Hcl (AFRIN) 15 Ml Mist 15 ML NS BID for sinusitis for 3 Days, #2 SPRAY 0 Refills Prov: NAIMA JEFFERSON DO 07/08/21 Amoxicillin/Potassium Clav (AUGMENTIN 875-125 TABLET) 1 Each Tablet 1 TAB PO BID for sinusitis for 10 Days, #20 TAB 0 Refills Prov: NAIMA JEFFERSON DO 07/08/21 NAIMA JEFFERSON DO Jul 08, 2021 08:20
[2021-07-08 08:42] VITALS: BP 94/56
[2021-07-08] MEDS ORDERED: ONDANSETRON PF 4 MG/2 ML VIAL. IVP ONE (08:45)
== END 2021-07-08 08:43 | disposition home or self-care (01) ==
LOC: ER 07:00
DX: J01.90 Acute sinusitis, unspecified (principal); I10 Essential (primary) hypertension; E03.9 Hypothyroidism, unspecified; K58.9 Irritable bowel syndrome, unspecified; G89.29 Other chronic pain; Z87.440 Personal history of urinary (tract) infections; Z87.442 Personal history of urinary calculi; Z88.5 Allergy status to narcotic agent
CPT/HCPCS: 71045; 96374; 99283; J2405